=== PATIENT | male | born 1945 | race Two or more races ===

== ENCOUNTER 2022-12-25 17:17 | Emergency (ER) | payer MEDICARE ==
[~2022-12-25] VITALS: Ht 167.6 cm; Wt 68.5 kg
[2022-12-25] MEDS ORDERED: MORPHINE SULFATE 2 MG/1 ML DISP.SYRIN IV ONE (17:30)
[2022-12-25] MEDS ORDERED: ONDANSETRON 4 MG/2 ML VIAL IV ONE (17:30)
[2022-12-25] MEDS ORDERED: IV NORMAL SALINE 500 ML BAG IV ONE (17:30)
[2022-12-25] MEDS ORDERED: NEXIUM (17:31)
[2022-12-25] MEDS ORDERED: LIPITOR (17:31)
[2022-12-25] MEDS ORDERED: MORPHINE SULFATE 4 MG/1 ML DISP.SYRIN ONE (17:36)
[2022-12-25] MEDS ORDERED: ONDANSETRON 4 MG/2 ML VIAL ONE (17:36)
[2022-12-25 18:01] LABS: CALCIUM 8.5 mg/dL (8.5-10.1); CARBON DIOXIDE 25 mmol/L (21-32); CHLORIDE 105 mmol/L (98-107); CREATININE 1.2 mg/dL (0.6-1.3); GLUCOSE 126 mg/dL (74-106); POTASSIUM 3.9 mmol/L (3.5-5.1); SODIUM SERUM 141 mmol/L (136-145); UREA NITROGEN, BLOOD 22 mg/dL (7-18)
[2022-12-25 18:10] LABS: ALANINE AMINOTRANSFERASE 17 U/L (16-63); ALBUMIN 3.6 g/dL (3.4-5.0); ALKALINE PHOSPHATASE 77 U/L (50-136); ASPARTATE AMINOTRANSFERASE 19 U/L (15-37); BILIRUBIN,DIRECT 0.2 mg/dL (0.0-0.2); BILIRUBIN,TOTAL 0.7 mg/dL (0.2-1.0); TOTAL PROTEIN, SERUM 6.1 g/dL (6.4-8.2)
[2022-12-25] MEDS ORDERED: IV NORMAL SALINE 250 ML IV ONE (18:22)
[2022-12-25] MEDS ORDERED: IOHEXOL 300MG/ML 100 ML INFUS..BTL ONE (18:22)
[2022-12-25] MEDS ORDERED: SWABABLE VALVE TRANSFER SET EA MC ONE (18:22)
[2022-12-25 18:29] LABS: BASOPHILS % (AUTO) 0.7 % (0.0-2.0); EOSINOPHILS # (AUTO) 0.1 K/uL (0.0-0.7); EOSINOPHILS % (AUTO) 2.6 % (0.0-7.0); HEMATOCRIT 43.9 % (36.7-47.1); HEMOGLOBIN 14.8 g/dL (12.5-16.3); LYMPHOCYTES # (AUTO) 1.3 K/uL (0.8-4.8); MEAN CORPUSCULAR HEMOGLOBIN 31.6 uug (23.8-33.4); MEAN CORPUSCULAR HGB CONC 34 g/dL (32.5-36.3); MEAN CORPUSCULAR VOLUME 93.9 fL (73.0-96.2); MONOCYTES # (AUTO) 0.4 K/uL (0.1-1.30); MONOCYTES % (AUTO) 8.2 % (0.0-11.0); NEUTROPHILS # (AUTO) 3.6 K/uL (1.8-8.9); NEUTROPHILS % (AUTO) 65.5 % (38.5-71.5); PLATELET COUNT (AUTO) 141 K/uL (152-348); RED BLOOD CELL COUNT(AUTO) 4.68 MIL/uL (4.06-5.63); RED CELL DISTRIBUTION WIDTH 14.1 % (12.1-16.2); WHITE BLOOD COUNT (AUTO) 5.4 K/uL (3.6-10.2)
[2022-12-25 19:53] LABS: LIPASE 33 U/L (73-393)
[2022-12-25] MEDS ORDERED: TRAM50TA2 PO (20:02)
[2022-12-25] MEDS ORDERED: HYDROCODONE/APAP 10-325 MG TABLET ONE (20:10)
[2022-12-25] MEDS ORDERED: HYDROCODONE/APAP 10-325 MG TABLET PO ONE (20:15)
[2022-12-25 20:18] VITALS: BP 159/87; O2SAT 97
== END 2022-12-25 20:43 | disposition home or self-care (01) ==
LOC: ER 17:19
DX: S22.31XA Fracture of one rib, right side, initial encounter for closed fracture (principal); S22.20XA Unspecified fracture of sternum, initial encounter for closed fracture; S61.217A Laceration without foreign body of left little finger without damage to nail, initial encounter; M79.10 Myalgia, unspecified site; E78.5 Hyperlipidemia, unspecified; K21.9 Gastro-esophageal reflux disease without esophagitis; Z79.899 Other long term (current) drug therapy; V49.9XXA Car occupant (driver) (passenger) injured in unspecified traffic accident, initial encounter; Y93.89 Activity, other specified; Y92.410 Unspecified street and highway as the place of occurrence of the external cause; Y99.8 Other external cause status
CPT/HCPCS: 99285; 71260; 96374; 96375; 80076; 80048; 83690; 85025; 85730; 84484; 36415; 73130; 73590; 74177; 12001; 93005; J2405; Q9967; J2270; J7040 ×2; A4663

== ENCOUNTER 2023-02-28 08:26 | Inpatient (IN) | payer MEDICARE, BC ==
[~2023-02-28] VITALS: Ht 170.2 cm; Wt 68.0 kg
[~2023-02-28 08:26] MED LIST: LIPITOR; NEXIUM; TRAM50TA2 PO
[2023-02-28] MEDS ORDERED: FAMO40TA7 PO (09:30)
[2023-02-28] MEDS ORDERED: TICA60TA PO ×2 (09:30→18:38)
[2023-02-28] MEDS ORDERED: RASA1TAB4 PO (09:30)
[2023-02-28] MEDS ORDERED: GABA-532 (09:30)
[2023-02-28] MEDS ORDERED: ATOR10TA (09:30)
[2023-02-28] MEDS ORDERED: CARB1TAB21 PO (09:30)
[2023-02-28] MEDS ORDERED: ESCI5TAB16 PO (09:30)
[2023-02-28] MEDS ORDERED: FINA5TAB3 PO (09:30)
[2023-02-28] MEDS ORDERED: BUDE10.2 INH (09:30)
[2023-02-28 09:36] LABS: BASOPHILS # (AUTO) 0.1 K/UL (0.0-0.2); BASOPHILS % (AUTO) 1.4 % (0.0-2.0); EOSINOPHILS # (AUTO) 0.1 K/uL (0.0-0.7); HEMATOCRIT 44.8 % (36.7-47.1); HEMOGLOBIN 15.2 g/dL (12.5-16.3); LYMPHOCYTES # (AUTO) 0.4 K/uL (0.8-4.8); LYMPHOCYTES % (AUTO) 4.9 % (20.5-51.5); MEAN CORPUSCULAR HGB CONC 34 g/dL (32.5-36.3); MEAN CORPUSCULAR VOLUME 94.2 fL (73.0-96.2); MONOCYTES # (AUTO) 0.5 K/uL (0.1-1.30); MONOCYTES % (AUTO) 5.8 % (0.0-11.0); NEUTROPHILS # (AUTO) 7.2 K/uL (1.8-8.9); NEUTROPHILS % (AUTO) 86.9 % (38.5-71.5); PLATELET COUNT (AUTO) 144 K/uL (152-348); RED BLOOD CELL COUNT(AUTO) 4.75 MIL/uL (4.06-5.63); RED CELL DISTRIBUTION WIDTH 14.1 % (12.1-16.2); WHITE BLOOD COUNT (AUTO) 8.3 K/uL (3.6-10.2)
[2023-02-28 09:45] LABS: CALCIUM 8.5 mg/dL (8.5-10.1); CARBON DIOXIDE 25 mmol/L (21-32); CHLORIDE 108 mmol/L (98-107); CREATININE 1.1 mg/dL (0.6-1.3); GLUCOSE 132 mg/dL (74-106); POTASSIUM 4.1 mmol/L (3.5-5.1); SODIUM SERUM 142 mmol/L (136-145); UREA NITROGEN, BLOOD 21 mg/dL (7-18)
[2023-02-28] MEDS ORDERED: MORPHINE SULFATE 4 MG/1 ML DISP.SYRIN IV ONE (09:45)
[2023-02-28] MEDS ORDERED: ONDANSETRON 4 MG/2 ML VIAL IV ONE (09:45)
[2023-02-28] MEDS ORDERED: ONDANSETRON 4 MG/2 ML VIAL ONE (09:45)
[2023-02-28] MEDS ORDERED: MORPHINE SULFATE 4 MG/1 ML DISP.SYRIN ONE (09:45)
[2023-02-28 09:49] LABS: DIFFERENTIAL COMMENT 1
[2023-02-28 12:00] VITALS: BP 144/83; TEMP 97.6; O2SAT 97
[2023-02-28] MEDS ORDERED: ONDANSETRON 4 MG/2 ML VIAL IV PRN (12:30)
[2023-02-28] MEDS ORDERED: ACETAMINOPHEN 650 MG SUPP.RECT RC PRN (12:30)
[2023-02-28] MEDS ORDERED: FUROSEMIDE 20 MG/2 ML VIAL IV ONE (13:00)
[2023-02-28] MEDS: IV D5/ 0.9% NACL 1,000 ML IV PRN (13:52)
[2023-02-28 16:00] VITALS: BP 149/87; TEMP 98.3; O2SAT 97
[2023-02-28] MEDS: MORPHINE SULFATE 2 MG/1 ML DISP.SYRIN IV PRN ×2 (16:20→19:54)
[2023-02-28 18:01] VITALS: BP_SYST 145; BP_SYST 152; BP_DIAS 102; BP_DIAS 70; TEMP 98.3; O2SAT 98
[2023-02-28 20:16] VITALS: BP 134/82; TEMP 99.3; O2SAT 95
[2023-02-28] MEDS: LORAZEPAM 2 MG/1 ML VIAL IV PRN (21:14)
[2023-03-01] VITALS (8 sets, daily range): BP systolic 121–164; BP diastolic 61–100; TEMP 97.3–98.9; O2SAT 92–98
[2023-03-01] MEDS: CEFAZOLIN 1 G in IV DEXTROSE 5% 50 ML IV SCH ×2 (00:23→08:23)
[2023-03-01] MEDS: MORPHINE SULFATE 2 MG/1 ML DISP.SYRIN IV PRN ×4 (00:24→23:48)
[2023-03-01] MEDS: LORAZEPAM 2 MG/1 ML VIAL IV PRN ×2 (05:26→19:15)
[2023-03-01 07:19] LABS: BASOPHILS # (AUTO) 0.1 K/UL (0.0-0.2); BASOPHILS % (AUTO) 0.7 % (0.0-2.0); EOSINOPHILS # (AUTO) 0.1 K/uL (0.0-0.7); EOSINOPHILS % (AUTO) 1.7 % (0.0-7.0); HEMOGLOBIN 14.4 g/dL (12.5-16.3); LYMPHOCYTES # (AUTO) 0.6 K/uL (0.8-4.8); LYMPHOCYTES % (AUTO) 7.4 % (20.5-51.5); MEAN CORPUSCULAR HEMOGLOBIN 32.1 uug (23.8-33.4); MEAN CORPUSCULAR HGB CONC 34 g/dL (32.5-36.3); MEAN CORPUSCULAR VOLUME 93.3 fL (73.0-96.2); MONOCYTES # (AUTO) 0.5 K/uL (0.1-1.30); MONOCYTES % (AUTO) 6.5 % (0.0-11.0); NEUTROPHILS # (AUTO) 6.5 K/uL (1.8-8.9); NEUTROPHILS % (AUTO) 83.7 % (38.5-71.5); PLATELET COUNT (AUTO) 135 K/uL (152-348); RED CELL DISTRIBUTION WIDTH 14.1 % (12.1-16.2); WHITE BLOOD COUNT (AUTO) 7.8 K/uL (3.6-10.2)
[2023-03-01 07:26] LABS: DIFFERENTIAL COMMENT 1
[2023-03-01 07:45] LABS: THYROID STIMULATING HORMONE 1.044 mIU/mL (0.358-3.740)
[2023-03-01 08:03] LABS: ALANINE AMINOTRANSFERASE 18 U/L (16-63); ALBUMIN 3.2 g/dL (3.4-5.0); ALKALINE PHOSPHATASE 77 U/L (50-136); ASPARTATE AMINOTRANSFERASE 16 U/L (15-37); BILIRUBIN,TOTAL 1.1 mg/dL (0.2-1.0); CALCIUM 7.8 mg/dL (8.5-10.1); CARBON DIOXIDE 24 mmol/L (21-32); CHLORIDE 108 mmol/L (98-107); CHOLESTEROL 104 mg/dL (<200); GLUCOSE 126 mg/dL (74-106); HDL CHOLESTEROL 57 mg/dL (40-60); MAGNESIUM 1.9 mg/dL (1.8-2.4); PHOSPHOROUS 2.9 mg/dL (2.5-4.9); POTASSIUM 3.3 mmol/L (3.5-5.1); SODIUM SERUM 142 mmol/L (136-145); TOTAL PROTEIN, SERUM 6.1 g/dL (6.4-8.2); TRIGLYCERIDES 47 MG/DL (30-150); UREA NITROGEN, BLOOD 19 mg/dL (7-18)
[2023-03-01] MEDS: PANTOPRAZOLE SODIUM 40 MG VIAL IV SCH (09:02)
[2023-03-01] MEDS: ENALAPRILAT DIHYDRATE 1.25 MG/1 ML VIAL IV PRN (09:03)
[2023-03-01] MEDS: IV D5/ 0.9% NACL 1,000 ML IV PRN (10:25)
[2023-03-01] MEDS: POTASSIUM CHLORIDE 10 MEQ, LIDOCAINE-MPF 1% 1 ML in IV DEXTROSE 5% 100 ML IV SCH ×2 (10:25→11:32)
[2023-03-01] MEDS ORDERED: MORPHINE SULFATE 4 MG/1 ML DISP.SYRIN IV PRN (11:30)
[2023-03-01 12:22] LABS: *BLOOD, URINE NEGATIVE (NEGATIVE); *CLARITY,URINE CLEAR (CLEAR); *COLOR,URINE YELLOW (YELLOW); *KETONES,URINE TRACE (NEGATIVE); *PROTEIN,URINE 2+ (NEGATIVE); LEUKOCYTE ESTERASE ,URINE NEGATIVE (NEGATIVE); NITRITE, URINE NEGATIVE (NEGATIVE); PH,URINE 6.5 (5.0-8.0); UGLUCOSE NEGATIVE (NEGATIVE)
[2023-03-01] MEDS ORDERED: MORPHINE SULFATE 2 MG/1 ML DISP.SYRIN IV PRN ×2 (12:30→18:00)
[2023-03-01 12:52] LABS: *BILIRUBIN,URIN 1+ (NEGATIVE)
[2023-03-01 13:41] LABS: BACTERIA,URINE FEW /HPF (NONE SEEN); RBC,URINE 0-3 /HPF (0-3); WBC,URINE 0-3 /HPF (0-3)
[2023-03-01 13:42] LABS: SQUAMOUS EPITHELIAL CELL,UR FEW /HPF (NONE SEEN)
[2023-03-01] MEDS ORDERED: VANCOMYCIN 1000 MG VIAL ONE (14:48)
[2023-03-01] MEDS ORDERED: MIDAZOLAM HCL 2 MG/2 ML VIAL ONE ×2 (15:43→18:01)
[2023-03-01] MEDS ORDERED: FENTANYL CITRATE 250 MCG/5 ML AMPUL ONE (15:44)
[2023-03-01] MEDS ORDERED: FENTANYL CITRATE 100 MCG/2 ML AMPUL ONE (15:44)
[2023-03-01] MEDS ORDERED: FAMOTIDINE. 20 MG/2 ML VIAL IV ONE (15:45)
[2023-03-01] MEDS ORDERED: ROCURONIUM BROMIDE 50 MG/5 ML VIAL ONE (15:45)
[2023-03-01] MEDS ORDERED: HYDROMORPHONE 1 MG/1 ML DISP.SYRIN ONE (17:45)
[2023-03-01] MEDS ORDERED: HYDROCODONE/APAP 10-325 MG TABLET PO PRN (18:00)
[2023-03-01] MEDS ORDERED: POTASSIUM CHLORIDE 20 MEQ in IV 1/2NS 1000 ML 1,000 ML IV PRN (18:00)
[2023-03-01] MEDS ORDERED: IV D5W-0.45% NS +20 KCL 1,000 ML IV ONE (18:15)
[2023-03-02] MEDS: CEFAZOLIN 1 G in IV DEXTROSE 5% 50 ML IV SCH ×2 (00:43→08:19)
[2023-03-02] MEDS: MORPHINE SULFATE 2 MG/1 ML DISP.SYRIN IV PRN ×2 (03:44→08:19)
[2023-03-02 04:00] VITALS: BP 121/67; TEMP 97.6; O2SAT 98
[2023-03-02] MEDS: LORAZEPAM 2 MG/1 ML VIAL IV PRN (06:26)
[2023-03-02 07:21] LABS: BASOPHILS % (AUTO) 0.6 % (0.0-2.0); EOSINOPHILS # (AUTO) 0.1 K/uL (0.0-0.7); EOSINOPHILS % (AUTO) 0.8 % (0.0-7.0); HEMATOCRIT 39.6 % (36.7-47.1); HEMOGLOBIN 13.3 g/dL (12.5-16.3); LYMPHOCYTES # (AUTO) 0.6 K/uL (0.8-4.8); LYMPHOCYTES % (AUTO) 8.7 % (20.5-51.5); MEAN CORPUSCULAR HEMOGLOBIN 31.8 uug (23.8-33.4); MEAN CORPUSCULAR HGB CONC 34 g/dL (32.5-36.3); MEAN CORPUSCULAR VOLUME 94.7 fL (73.0-96.2); MONOCYTES # (AUTO) 0.8 K/uL (0.1-1.30); MONOCYTES % (AUTO) 11.1 % (0.0-11.0); NEUTROPHILS # (AUTO) 5.5 K/uL (1.8-8.9); NEUTROPHILS % (AUTO) 78.8 % (38.5-71.5); PLATELET COUNT (AUTO) 131 K/uL (152-348); RED BLOOD CELL COUNT(AUTO) 4.18 MIL/uL (4.06-5.63); RED CELL DISTRIBUTION WIDTH 13.7 % (12.1-16.2); WHITE BLOOD COUNT (AUTO) 6.9 K/uL (3.6-10.2)
[2023-03-02 07:30] LABS: DIFFERENTIAL COMMENT 1
[2023-03-02 08:00] LABS: CALCIUM 8.1 mg/dL (8.5-10.1); CARBON DIOXIDE 24 mmol/L (21-32); CHLORIDE 111 mmol/L (98-107); CREATININE 1.1 mg/dL (0.6-1.3); GLUCOSE 135 mg/dL (74-106); MAGNESIUM 1.9 mg/dL (1.8-2.4); PHOSPHOROUS 2.7 mg/dL (2.5-4.9); POTASSIUM 4.1 mmol/L (3.5-5.1); SODIUM SERUM 143 mmol/L (136-145); UREA NITROGEN, BLOOD 18 mg/dL (7-18)
[2023-03-02] MEDS: PANTOPRAZOLE SODIUM 40 MG VIAL IV SCH (08:18)
[2023-03-02] MEDS: POTASSIUM CHLORIDE 20 MEQ in IV D5 1/2 NS 1000 ML 1,000 ML IV PRN (09:42)
[2023-03-02 14:20] VITALS: BP 161/83; TEMP 98; O2SAT 96
[2023-03-02] MEDS: ENALAPRILAT DIHYDRATE 1.25 MG/1 ML VIAL IV PRN ×2 (14:31→23:06)
[2023-03-02 14:45] VITALS: BP 155/81
[2023-03-02] MEDS ORDERED: ENALAPRILAT DIHYDRATE 1.25 MG/1 ML VIAL IV PRN (15:00)
[2023-03-02] MEDS: KETOROLAC TROMETHAMINE 15 MG INJ IVP PRN ×2 (15:20→23:37)
[2023-03-02] MEDS ORDERED: PROPOFOL 200 MG/20 ML BOTTLE ONE (16:00)
[2023-03-02] MEDS ORDERED: ONDANSETRON 4 MG/2 ML VIAL ONE (16:00)
[2023-03-02] MEDS ORDERED: GLYCOPYRROLATE 0.2 MG/ML VIAL ONE ×2 (16:00)
[2023-03-02] MEDS ORDERED: CEFAZOLIN 1 G VIAL ONE ×2 (16:00)
[2023-03-02] MEDS ORDERED: METOCLOPRAMIDE HCL 10 MG/2 ML VIAL ONE (16:00)
[2023-03-02] MEDS ORDERED: LIDOCAINE-MPF 2% 5 ML VIAL ONE (16:00)
[2023-03-02] MEDS ORDERED: NEOSTIGMINE METHYLSULFATE 10 MG/10 ML VIAL ONE (16:00)
[2023-03-02 18:08] VITALS: O2SAT 96
[2023-03-02] MEDS: HYDROCODONE/APAP 10-325 MG TABLET PO PRN (19:54)
[2023-03-02 20:00] VITALS: BP 162/79; TEMP 98.2; O2SAT 94
[2023-03-02] MEDS ORDERED: LORAZEPAM 2 MG/1 ML VIAL IV ONE (21:45)
[2023-03-03] VITALS: BP 151/82; TEMP 98.1; O2SAT 96
[2023-03-03] MEDS ORDERED: LORAZEPAM 2 MG/1 ML VIAL IV ONE (01:30)
[2023-03-03] MEDS: POTASSIUM CHLORIDE 20 MEQ in IV D5 1/2 NS 1000 ML 1,000 ML IV PRN (04:07)
[2023-03-03] MEDS: HYDROCODONE/APAP 10-325 MG TABLET PO PRN ×2 (06:05→11:52)
[2023-03-03 07:31] LABS: BASOPHILS # (AUTO) 0.1 K/UL (0.0-0.2); BASOPHILS % (AUTO) 0.8 % (0.0-2.0); EOSINOPHILS # (AUTO) 0.1 K/uL (0.0-0.7); EOSINOPHILS % (AUTO) 0.7 % (0.0-7.0); HEMATOCRIT 38.3 % (36.7-47.1); LYMPHOCYTES # (AUTO) 0.6 K/uL (0.8-4.8); LYMPHOCYTES % (AUTO) 7.8 % (20.5-51.5); MEAN CORPUSCULAR HEMOGLOBIN 32.1 uug (23.8-33.4); MEAN CORPUSCULAR HGB CONC 34 g/dL (32.5-36.3); MEAN CORPUSCULAR VOLUME 94.3 fL (73.0-96.2); MONOCYTES # (AUTO) 0.9 K/uL (0.1-1.30); MONOCYTES % (AUTO) 11.7 % (0.0-11.0); PLATELET COUNT (AUTO) 141 K/uL (152-348); RED BLOOD CELL COUNT(AUTO) 4.06 MIL/uL (4.06-5.63); RED CELL DISTRIBUTION WIDTH 13.8 % (12.1-16.2); WHITE BLOOD COUNT (AUTO) 7.6 K/uL (3.6-10.2)
[2023-03-03 07:37] LABS: DIFFERENTIAL COMMENT 1
[2023-03-03 07:46] LABS: CALCIUM 8.8 mg/dL (8.5-10.1); CARBON DIOXIDE 23 mmol/L (21-32); CHLORIDE 110 mmol/L (98-107); GLUCOSE 104 mg/dL (74-106); MAGNESIUM 2.1 mg/dL (1.8-2.4); PHOSPHOROUS 2.7 mg/dL (2.5-4.9); POTASSIUM 3.9 mmol/L (3.5-5.1); SODIUM SERUM 146 mmol/L (136-145); UREA NITROGEN, BLOOD 31 mg/dL (7-18)
[2023-03-03] MEDS: PANTOPRAZOLE SODIUM 40 MG VIAL IV SCH (08:41)
[2023-03-03] MEDS ORDERED: ALBUTEROL SULFATE 2.5 MG/3 ML NEBU NEB PRN (09:00)
[2023-03-03 12:22] VITALS: BP 165/95; TEMP 98.9; O2SAT 96
[2023-03-03] MEDS: ENALAPRILAT DIHYDRATE 1.25 MG/1 ML VIAL IV PRN (12:27)
[2023-03-03] MEDS: ENSURE ENLIVE (VAN) 240 ML LIQUID PO SCH ×2 (13:00→16:46)
[2023-03-03] MEDS ORDERED: QUETIAPINE FUMARATE 25 MG TABLET PO PRN (13:15)
[2023-03-03] MEDS ORDERED: MIRALAX 17 GM POWD.PACK PO PRN (15:45)
[2023-03-03] MEDS: GABAPENTIN 100 MG CAPSULE PO SCH (16:46)
[2023-03-03] MEDS: CARBIDOPA/LEVODOPA 25-100MG TABLET PO SCH (16:46)
[2023-03-03] MEDS: ACETAMINOPHEN ES 500 MG TABLET PO PRN (18:17)
[2023-03-03 20:00] VITALS: BP 156/94; TEMP 98.9; O2SAT 98
[2023-03-03] MEDS ORDERED: CLONIDINE-TTS 1 PATCH TD SCH (20:15)
[2023-03-03] MEDS: DOCUSATE SODIUM 100 MG CAPSULE PO SCH (20:33)
[2023-03-03] MEDS ORDERED: CLONIDINE-TTS 1 PATCH TD ONE (21:24)
[2023-03-04] VITALS: BP 142/97; TEMP 98; O2SAT 96
[2023-03-04] MEDS: ACETAMINOPHEN ES 500 MG TABLET PO PRN ×3 (00:34→20:27)
[2023-03-04] MEDS: GABAPENTIN 100 MG CAPSULE PO SCH ×4 (00:34→23:56)
[2023-03-04 04:00] VITALS: BP 137/90; TEMP 98.1; O2SAT 95
[2023-03-04] MEDS: PANTOPRAZOLE SODIUM 40 MG TABLET.DR PO SCH (06:29)
[2023-03-04 08:15] VITALS: BP 129/72; TEMP 98.9; O2SAT 95
[2023-03-04] MEDS: CARBIDOPA/LEVODOPA 25-100MG TABLET PO SCH ×3 (08:47→17:11)
[2023-03-04] MEDS: ENSURE ENLIVE (VAN) 240 ML LIQUID PO SCH ×3 (08:48→17:11)
[2023-03-04] MEDS ORDERED: FUROSEMIDE 20 MG/2 ML VIAL IV ONE (09:45)
[2023-03-04] MEDS ORDERED: DOXA4TAB3 PO (10:08)
[2023-03-04] MEDS: RASAGILINE MESYLATE 1 MG PO SCH (10:23)
[2023-03-04 11:18] VITALS: BP 120/68; TEMP 98.2; O2SAT 97
[2023-03-04 16:00] VITALS: BP 150/76; TEMP 97.5; O2SAT 96
[2023-03-04 16:13] LABS: BASOPHILS % (AUTO) 0.8 % (0.0-2.0); EOSINOPHILS # (AUTO) 0.3 K/uL (0.0-0.7); EOSINOPHILS % (AUTO) 5.2 % (0.0-7.0); HEMATOCRIT 39.2 % (36.7-47.1); HEMOGLOBIN 13.4 g/dL (12.5-16.3); LYMPHOCYTES # (AUTO) 0.9 K/uL (0.8-4.8); LYMPHOCYTES % (AUTO) 14.7 % (20.5-51.5); MEAN CORPUSCULAR HEMOGLOBIN 31.7 uug (23.8-33.4); MEAN CORPUSCULAR HGB CONC 34 g/dL (32.5-36.3); MEAN CORPUSCULAR VOLUME 93.1 fL (73.0-96.2); MONOCYTES # (AUTO) 0.5 K/uL (0.1-1.30); MONOCYTES % (AUTO) 8.1 % (0.0-11.0); NEUTROPHILS # (AUTO) 4.4 K/uL (1.8-8.9); NEUTROPHILS % (AUTO) 71.2 % (38.5-71.5); PLATELET COUNT (AUTO) 164 K/uL (152-348); RED BLOOD CELL COUNT(AUTO) 4.21 MIL/uL (4.06-5.63); RED CELL DISTRIBUTION WIDTH 13.8 % (12.1-16.2); WHITE BLOOD COUNT (AUTO) 6.2 K/uL (3.6-10.2)
[2023-03-04 16:36] LABS: ALANINE AMINOTRANSFERASE 33 U/L (16-63); ALBUMIN 2.7 g/dL (3.4-5.0); ALKALINE PHOSPHATASE 175 U/L (50-136); ASPARTATE AMINOTRANSFERASE 181 U/L (15-37); BILIRUBIN,TOTAL 2.7 mg/dL (0.2-1.0); CALCIUM 8.5 mg/dL (8.5-10.1); CARBON DIOXIDE 26 mmol/L (21-32); CHLORIDE 106 mmol/L (98-107); CREATININE 0.9 mg/dL (0.6-1.3); GLUCOSE 127 mg/dL (74-106); MAGNESIUM 2.3 mg/dL (1.8-2.4); NT-PRO BNP 767 pg/mL (0-125); PHOSPHOROUS 3.4 mg/dL (2.5-4.9); POTASSIUM 3.4 mmol/L (3.5-5.1); SODIUM SERUM 142 mmol/L (136-145); TOTAL PROTEIN, SERUM 5.6 g/dL (6.4-8.2); UREA NITROGEN, BLOOD 31 mg/dL (7-18)
[2023-03-04 20:00] VITALS: BP 138/81; TEMP 98.3; O2SAT 96
[2023-03-04] MEDS: DOCUSATE SODIUM 100 MG CAPSULE PO SCH (20:16)
[2023-03-05] MEDS: ACETAMINOPHEN ES 500 MG TABLET PO PRN ×2 (04:10→21:02)
[2023-03-05 05:21] VITALS: BP 135/66; TEMP 97.5; O2SAT 97
[2023-03-05] MEDS: PANTOPRAZOLE SODIUM 40 MG TABLET.DR PO SCH (06:20)
[2023-03-05 06:40] LABS: BASOPHILS % (AUTO) 0.8 % (0.0-2.0); EOSINOPHILS # (AUTO) 0.2 K/uL (0.0-0.7); EOSINOPHILS % (AUTO) 3.6 % (0.0-7.0); HEMATOCRIT 37.9 % (36.7-47.1); HEMOGLOBIN 13.2 g/dL (12.5-16.3); LYMPHOCYTES # (AUTO) 0.9 K/uL (0.8-4.8); LYMPHOCYTES % (AUTO) 16.3 % (20.5-51.5); MEAN CORPUSCULAR HEMOGLOBIN 32.1 uug (23.8-33.4); MEAN CORPUSCULAR HGB CONC 35 g/dL (32.5-36.3); MEAN CORPUSCULAR VOLUME 92.1 fL (73.0-96.2); MONOCYTES # (AUTO) 0.5 K/uL (0.1-1.30); NEUTROPHILS % (AUTO) 70.3 % (38.5-71.5); PLATELET COUNT (AUTO) 177 K/uL (152-348); RED BLOOD CELL COUNT(AUTO) 4.11 MIL/uL (4.06-5.63); RED CELL DISTRIBUTION WIDTH 13.8 % (12.1-16.2); WHITE BLOOD COUNT (AUTO) 5.7 K/uL (3.6-10.2)
[2023-03-05 06:52] LABS: DIFFERENTIAL COMMENT 1
[2023-03-05 06:56] LABS: ALANINE AMINOTRANSFERASE 71 U/L (16-63); ALBUMIN 2.6 g/dL (3.4-5.0); ALKALINE PHOSPHATASE 161 U/L (50-136); ASPARTATE AMINOTRANSFERASE 91 U/L (15-37); BILIRUBIN,TOTAL 1.5 mg/dL (0.2-1.0); CALCIUM 8.7 mg/dL (8.5-10.1); CARBON DIOXIDE 26 mmol/L (21-32); CHLORIDE 107 mmol/L (98-107); CREATININE 0.9 mg/dL (0.6-1.3); GLUCOSE 96 mg/dL (74-106); MAGNESIUM 2.3 mg/dL (1.8-2.4); PHOSPHOROUS 3.9 mg/dL (2.5-4.9); POTASSIUM 3.5 mmol/L (3.5-5.1); SODIUM SERUM 144 mmol/L (136-145); TOTAL PROTEIN, SERUM 5.6 g/dL (6.4-8.2); UREA NITROGEN, BLOOD 35 mg/dL (7-18)
[2023-03-05] MEDS: GABAPENTIN 100 MG CAPSULE PO SCH ×2 (08:31→16:42)
[2023-03-05] MEDS: RASAGILINE MESYLATE 1 MG PO SCH (08:31)
[2023-03-05] MEDS: CARBIDOPA/LEVODOPA 25-100MG TABLET PO SCH ×3 (08:32→16:42)
[2023-03-05] MEDS: ENSURE ENLIVE (VAN) 240 ML LIQUID PO SCH ×3 (08:33→16:43)
[2023-03-05] MEDS ORDERED: MULTIVITAMINS,THERAPEUTIC TABLET PO SCH (10:30)
[2023-03-05] MEDS ORDERED: POTASSIUM CHLORIDE 20 MEQ TAB.PRT.SR PO ONE (10:30)
[2023-03-05 11:11] VITALS: BP 123/69; TEMP 98.7; O2SAT 98
[2023-03-05] MEDS: GUAIFENESIN/DEXTROMETHORPHAN 5 ML UDC PO PRN ×2 (12:47→21:02)
[2023-03-05 15:17] VITALS: BP 130/70; TEMP 98.6; O2SAT 98
[2023-03-05] MEDS ORDERED: DOCU-141 PO (19:43)
[2023-03-05] MEDS ORDERED: POLY17PO4 PO (19:43)
[2023-03-05] MEDS ORDERED: CARB1TAB21 PO (19:43)
[2023-03-05] MEDS ORDERED: ALBU2.5V7 NEB (19:43)
[2023-03-05] MEDS ORDERED: DOXA4TAB3 PO (19:43)
[2023-03-05] MEDS ORDERED: ACET-73 PO (19:43)
[2023-03-05] MEDS ORDERED: GABA-532 PO (19:43)
[2023-03-05] MEDS ORDERED: QUET25TA36 PO (19:43)
[2023-03-05] MEDS ORDERED: MULT-24 PO (19:43)
[2023-03-05] MEDS ORDERED: Lactose-Free Food PO (19:43)
[2023-03-05] MEDS ORDERED: Patient May Use Own Med- Md Ok PO (19:43)
[2023-03-05] MEDS ORDERED: GUAI5SYR PO (19:43)
[2023-03-05 20:18] VITALS: BP 122/69; TEMP 98.4; O2SAT 96
[2023-03-05 20:47] VITALS: O2SAT 96
[2023-03-05 21:01] VITALS: O2SAT 96; O2SAT 99
[2023-03-05] MEDS: DOCUSATE SODIUM 100 MG CAPSULE PO SCH (21:02)
[2023-03-06] MEDS ORDERED: ATOR10TA PO (12:44)
[2023-03-06] MEDS ORDERED: ATOR20TA PO (12:44)
== END 2023-03-05 21:55 | DRG 522 ==
LOC: ER 08:26 → MEDSURG3 11:26 → TELE3 03-02 15:05 → MEDSURG3 03-04 09:40
PROVIDERS: ADMIT Internal Medicine; ATTEND Internal Medicine
PROC: 0SRR0JA Replacement of Right Hip Joint, Femoral Surface with Synthetic Substitute, Uncemented, Open Approach (ICD-10-PCS; principal; 2023-03-01)
DX: S72.011A Unspecified intracapsular fracture of right femur, initial encounter for closed fracture (principal); D68.59 Other primary thrombophilia; F02.811 Dementia in other diseases classified elsewhere, unspecified severity, with agitation; F05 Delirium due to known physiological condition; G20.A1 Parkinson's disease without dyskinesia, without mention of fluctuations; K21.9 Gastro-esophageal reflux disease without esophagitis; E78.5 Hyperlipidemia, unspecified; N40.0 Benign prostatic hyperplasia without lower urinary tract symptoms; M19.90 Unspecified osteoarthritis, unspecified site; E11.9 Type 2 diabetes mellitus without complications; Z74.09 Other reduced mobility; R74.01 Elevation of levels of liver transaminase levels; Z86.73 Personal history of transient ischemic attack (TIA), and cerebral infarction without residual deficits; Z87.891 Personal history of nicotine dependence; Z90.49 Acquired absence of other specified parts of digestive tract; Z98.49 Cataract extraction status, unspecified eye; Z79.51 Long term (current) use of inhaled steroids; Z79.02 Long term (current) use of antithrombotics/antiplatelets; W01.0XXA Fall on same level from slipping, tripping and stumbling without subsequent striking against object, initial encounter; Y92.89 Other specified places as the place of occurrence of the external cause; R09.89 Other specified symptoms and signs involving the circulatory and respiratory systems; R94.31 Abnormal electrocardiogram [ECG] [EKG]
CPT/HCPCS: 36415; 70450; 71045; 73501; 73502; 73551; 73560; 74018; 83690; 83735; 84100; 84443; 84484; 85025; 85730; 93005; 93307; A6213; A9150; C9113; G0378; J0690; J1170; J1885; J1940; J2001; J2060; J2250; J2270; J2405; J2765; J3010; J3370; J3480; J3490; J7042

== ENCOUNTER 2023-03-05 22:09 | Inpatient (IN) | payer MEDICARE, BC ==
[~2023-03-05] VITALS: Ht 170.2 cm; Wt 72.6 kg
[2023-03-05 22:00] VITALS: BP 122/69; TEMP 98.6; O2SAT 96
[~2023-03-05 22:09] MED LIST changes: +ACET-73 PO; +ALBU2.5V7 NEB; +ATOR10TA; +BUDE10.2 INH; +CARB1TAB21 PO; +DOCU-141 PO; +DOXA4TAB3 PO; +ESCI5TAB16 PO; +FAMO40TA7 PO; +FINA5TAB3 PO; +GABA-532; +GABA-532 PO; +GUAI5SYR PO; -LIPITOR; +Lactose-Free Food PO; +MULT-24 PO; -NEXIUM; +POLY17PO4 PO; +Patient May Use Own Med- Md Ok PO; +QUET25TA36 PO; +RASA1TAB4 PO; +TICA60TA PO
[2023-03-06] VITALS (8 sets, daily range): BP systolic 104–138; BP diastolic 63–66; TEMP 97.8–98.8; O2SAT 96–99
[2023-03-06] MEDS ORDERED: MIRALAX 17 GM POWD.PACK PO PRN (01:45)
[2023-03-06] MEDS ORDERED: GABAPENTIN 100 MG CAPSULE PO SCH (02:00)
[2023-03-06] MEDS: QUETIAPINE FUMARATE 25 MG TABLET PO PRN (02:28)
[2023-03-06] MEDS: FAMOTIDINE 20 MG TABLET PO SCH (08:25)
[2023-03-06] MEDS: MULTIVITAMINS,THERAPEUTIC TABLET PO SCH (08:25)
[2023-03-06] MEDS: CARBIDOPA/LEVODOPA 25-100MG TABLET PO SCH ×3 (08:25→16:59)
[2023-03-06] MEDS: FINASTERIDE 5 MG TABLET PO SCH (08:25)
[2023-03-06] MEDS: ESCITALOPRAM OXALATE 10 MG TABLET PO SCH (08:26)
[2023-03-06] MEDS: ENSURE ENLIVE (VAN) 240 ML LIQUID PO SCH ×3 (08:27→17:00)
[2023-03-06] MEDS ORDERED: TICAGRELOR 60 MG TABLET PO SCH ×2 (09:00)
[2023-03-06] MEDS ORDERED: Medication Not On Formulary EA ([Patient May Use Own Med- Md Ok] 1 EA) PO SCH (09:00)
[2023-03-06] MEDS ORDERED: RASAGILINE MESYLATE PO SCH (09:00)
[2023-03-06] MEDS ORDERED: Medication Not On Formulary EA ([Lactose-Free Food] 240 ML) PO SCH (09:00)
[2023-03-06] MEDS ORDERED: ATOR20TA PO (12:44)
[2023-03-06] MEDS ORDERED: ATOR10TA PO (12:44)
[2023-03-06] MEDS: GABAPENTIN 100 MG CAPSULE PO SCH ×2 (13:09→20:45)
[2023-03-06] MEDS: GUAIFENESIN/DEXTROMETHORPHAN 5 ML UDC PO PRN ×2 (13:11→20:42)
[2023-03-06] MEDS: ALBUTEROL SULFATE 2.5 MG/3 ML NEBU NEB PRN ×2 (14:41→20:41)
[2023-03-06] MEDS: RASAGILINE MESYLATE 1 MG PO SCH (17:40)
[2023-03-06] MEDS: DOCUSATE SODIUM 100 MG CAPSULE PO SCH (20:46)
[2023-03-06] MEDS: DOXAZOSIN 2 MG TABLET PO SCH (20:57)
[2023-03-06] MEDS: TRAMADOL HCL 50 MG TABLET PO PRN (21:01)
[2023-03-07] VITALS (8 sets, daily range): BP systolic 105–121; BP diastolic 55–70; TEMP 94.8–98.6; O2SAT 95–99
[2023-03-07] MEDS: QUETIAPINE FUMARATE 25 MG TABLET PO PRN (01:05)
[2023-03-07] MEDS: GABAPENTIN 100 MG CAPSULE PO SCH ×3 (06:15→21:43)
[2023-03-07] MEDS: ALBUTEROL SULFATE 2.5 MG/3 ML NEBU NEB PRN ×2 (07:58→20:39)
[2023-03-07] MEDS: CARBIDOPA/LEVODOPA 25-100MG TABLET PO SCH ×3 (09:30→16:54)
[2023-03-07] MEDS: RASAGILINE MESYLATE 1 MG PO SCH (09:30)
[2023-03-07] MEDS: FAMOTIDINE 20 MG TABLET PO SCH (09:35)
[2023-03-07] MEDS: FINASTERIDE 5 MG TABLET PO SCH (09:36)
[2023-03-07] MEDS: MULTIVITAMINS,THERAPEUTIC TABLET PO SCH (09:36)
[2023-03-07] MEDS: ENSURE ENLIVE (VAN) 240 ML LIQUID PO SCH ×3 (09:37→16:54)
[2023-03-07] MEDS: ESCITALOPRAM OXALATE 10 MG TABLET PO SCH (09:37)
[2023-03-07] MEDS: CYANOCOBALAMIN 1000 MCG/ML VIAL IM SCH (14:24)
[2023-03-07 15:38] LABS: CALCIUM 8.3 mg/dL (8.5-10.1); CREATININE 0.8 mg/dL (0.6-1.3); POTASSIUM 3.6 mmol/L (3.5-5.1)
[2023-03-07] MEDS: DOCUSATE SODIUM 100 MG CAPSULE PO SCH (21:42)
[2023-03-07] MEDS: DOXAZOSIN 2 MG TABLET PO SCH (21:43)
[2023-03-08 03:36] LABS: *BILIRUBIN,URIN NEGATIVE (NEGATIVE); *BLOOD, URINE NEGATIVE (NEGATIVE); *CLARITY,URINE CLEAR (CLEAR); *COLOR,URINE YELLOW (YELLOW); *KETONES,URINE TRACE (NEGATIVE); *PROTEIN,URINE TRACE (NEGATIVE); LEUKOCYTE ESTERASE ,URINE NEGATIVE (NEGATIVE); NITRITE, URINE NEGATIVE (NEGATIVE); UGLUCOSE NEGATIVE (NEGATIVE)
[2023-03-08 04:00] VITALS: BP 115/69; TEMP 97.4; O2SAT 94
[2023-03-08] MEDS: GABAPENTIN 100 MG CAPSULE PO SCH ×3 (06:04→21:38)
[2023-03-08 07:44] VITALS: BP 144/76; TEMP 97.9; O2SAT 95
[2023-03-08] MEDS: RASAGILINE MESYLATE 1 MG PO SCH (08:55)
[2023-03-08] MEDS: ASPIRIN 81 MG TAB.CHEW PO SCH (08:56)
[2023-03-08] MEDS: FAMOTIDINE 20 MG TABLET PO SCH (08:56)
[2023-03-08] MEDS: CARBIDOPA/LEVODOPA 25-100MG TABLET PO SCH ×3 (08:58→16:46)
[2023-03-08] MEDS: ESCITALOPRAM OXALATE 10 MG TABLET PO SCH (08:59)
[2023-03-08] MEDS: MULTIVITAMINS,THERAPEUTIC TABLET PO SCH (08:59)
[2023-03-08] MEDS: FINASTERIDE 5 MG TABLET PO SCH (09:00)
[2023-03-08] MEDS: ENSURE ENLIVE (VAN) 240 ML LIQUID PO SCH (09:00)
[2023-03-08] MEDS: CYANOCOBALAMIN 1000 MCG/ML VIAL IM SCH (09:01)
[2023-03-08] MEDS: TICAGRELOR 60 MG TABLET PO SCH ×2 (09:53→16:46)
[2023-03-08 16:06] VITALS: BP 161/59; TEMP 98.3; O2SAT 95
[2023-03-08] MEDS ORDERED: IV DEXTROSE 5%-0.2% NS 1,000 ML IV PRN (17:30)
[2023-03-08] MEDS: IV D5 1/2 NS 1000 ML 1,000 ML IV PRN (17:42)
[2023-03-08 20:39] VITALS: BP 129/64; TEMP 98.2; O2SAT 96
[2023-03-08 20:51] VITALS: O2SAT 97
[2023-03-08] MEDS: ALBUTEROL SULFATE 2.5 MG/3 ML NEBU NEB PRN (20:51)
[2023-03-08 21:01] VITALS: O2SAT 100
[2023-03-08] MEDS: DOCUSATE SODIUM 100 MG CAPSULE PO SCH (21:39)
[2023-03-08] MEDS: DOXAZOSIN 2 MG TABLET PO SCH (21:39)
[2023-03-09] MEDS: ACETAMINOPHEN ES 500 MG TABLET PO PRN ×2 (00:27→20:43)
[2023-03-09 04:42] VITALS: BP 146/69; TEMP 98.2; O2SAT 98
[2023-03-09] MEDS: GABAPENTIN 100 MG CAPSULE PO SCH ×3 (06:08→21:21)
[2023-03-09] MEDS: IV D5 1/2 NS 1000 ML 1,000 ML IV PRN (06:09)
[2023-03-09 07:54] VITALS: BP 128/69; TEMP 98.6; O2SAT 96
[2023-03-09] MEDS: ASPIRIN 81 MG TAB.CHEW PO SCH (08:26)
[2023-03-09] MEDS: MULTIVITAMINS,THERAPEUTIC TABLET PO SCH (08:26)
[2023-03-09] MEDS: FAMOTIDINE 20 MG TABLET PO SCH (08:26)
[2023-03-09] MEDS: CARBIDOPA/LEVODOPA 25-100MG TABLET PO SCH ×3 (08:27→17:32)
[2023-03-09] MEDS: ESCITALOPRAM OXALATE 10 MG TABLET PO SCH (08:27)
[2023-03-09] MEDS: CYANOCOBALAMIN 1000 MCG/ML VIAL IM SCH (08:27)
[2023-03-09] MEDS: FINASTERIDE 5 MG TABLET PO SCH (08:27)
[2023-03-09] MEDS: ENSURE ENLIVE (VAN) 240 ML LIQUID PO SCH (08:28)
[2023-03-09] MEDS: RASAGILINE MESYLATE 1 MG PO SCH (08:28)
[2023-03-09] MEDS: TICAGRELOR 60 MG TABLET PO SCH ×2 (08:28→17:32)
[2023-03-09 15:04] VITALS: BP 117/68; TEMP 98; O2SAT 68
[2023-03-09 20:14] LABS: BASOPHILS # (AUTO) 0.1 K/UL (0.0-0.2); BASOPHILS % (AUTO) 0.9 % (0.0-2.0); EOSINOPHILS # (AUTO) 0.2 K/uL (0.0-0.7); EOSINOPHILS % (AUTO) 3.3 % (0.0-7.0); HEMATOCRIT 34.4 % (36.7-47.1); HEMOGLOBIN 11.4 g/dL (12.5-16.3); LYMPHOCYTES # (AUTO) 1.3 K/uL (0.8-4.8); LYMPHOCYTES % (AUTO) 18.5 % (20.5-51.5); MEAN CORPUSCULAR HEMOGLOBIN 31.3 uug (23.8-33.4); MEAN CORPUSCULAR HGB CONC 33 g/dL (32.5-36.3); MEAN CORPUSCULAR VOLUME 94.5 fL (73.0-96.2); MONOCYTES # (AUTO) 0.6 K/uL (0.1-1.30); MONOCYTES % (AUTO) 8.5 % (0.0-11.0); NEUTROPHILS # (AUTO) 4.6 K/uL (1.8-8.9); NEUTROPHILS % (AUTO) 68.8 % (38.5-71.5); PLATELET COUNT (AUTO) 250 K/uL (152-348); RED BLOOD CELL COUNT(AUTO) 3.64 MIL/uL (4.06-5.63); RED CELL DISTRIBUTION WIDTH 13.8 % (12.1-16.2); WHITE BLOOD COUNT (AUTO) 6.8 K/uL (3.6-10.2)
[2023-03-09 20:17] LABS: DIFFERENTIAL COMMENT 1
[2023-03-09 20:20] VITALS: O2SAT 98
[2023-03-09] MEDS: ALBUTEROL SULFATE 2.5 MG/3 ML NEBU NEB PRN (20:20)
[2023-03-09 20:24] LABS: CALCIUM 8.1 mg/dL (8.5-10.1); CREATININE 0.7 mg/dL (0.6-1.3); POTASSIUM 3.8 mmol/L (3.5-5.1)
[2023-03-09 20:30] VITALS: O2SAT 100
[2023-03-09 20:38] VITALS: BP 126/69; TEMP 97.6; O2SAT 96
[2023-03-09] MEDS: DOCUSATE SODIUM 100 MG CAPSULE PO SCH (20:42)
[2023-03-09] MEDS: DOXAZOSIN 2 MG TABLET PO SCH (20:43)
[2023-03-09] MEDS: GUAIFENESIN/DEXTROMETHORPHAN 5 ML UDC PO PRN (22:35)
[2023-03-09] MEDS ORDERED: HALOPERIDOL LACTATE 5 MG/1 ML VIAL IM PRN (23:30)
[2023-03-10 04:00] VITALS: BP 156/77; TEMP 98; O2SAT 99
[2023-03-10] MEDS: GABAPENTIN 100 MG CAPSULE PO SCH ×3 (05:51→22:08)
[2023-03-10] MEDS: FAMOTIDINE 20 MG TABLET PO SCH (08:32)
[2023-03-10] MEDS: CYANOCOBALAMIN 1000 MCG/ML VIAL IM SCH (08:33)
[2023-03-10] MEDS: MULTIVITAMINS,THERAPEUTIC TABLET PO SCH (08:33)
[2023-03-10] MEDS: ESCITALOPRAM OXALATE 10 MG TABLET PO SCH (08:33)
[2023-03-10] MEDS: CARBIDOPA/LEVODOPA 25-100MG TABLET PO SCH ×3 (08:33→16:20)
[2023-03-10] MEDS: FINASTERIDE 5 MG TABLET PO SCH (08:33)
[2023-03-10] MEDS: ENSURE ENLIVE (VAN) 240 ML LIQUID PO SCH (08:34)
[2023-03-10] MEDS: TICAGRELOR 60 MG TABLET PO SCH ×2 (08:35→16:20)
[2023-03-10] MEDS: RASAGILINE MESYLATE 1 MG PO SCH (08:35)
[2023-03-10] MEDS: ACETAMINOPHEN ES 500 MG TABLET PO PRN ×2 (09:03→15:15)
[2023-03-10 11:20] VITALS: BP 90/57; TEMP 97.8; O2SAT 98
[2023-03-10] MEDS: GUAIFENESIN/DEXTROMETHORPHAN 5 ML UDC PO PRN ×2 (12:10→23:23)
[2023-03-10] MEDS: TRAMADOL HCL 50 MG TABLET PO PRN (19:43)
[2023-03-10 20:19] VITALS: BP 135/69; TEMP 98.1; O2SAT 99
[2023-03-10] MEDS: DOCUSATE SODIUM 100 MG CAPSULE PO SCH (21:18)
[2023-03-10] MEDS: DOXAZOSIN 2 MG TABLET PO SCH (21:18)
[2023-03-10 22:29] VITALS: O2SAT 99
[2023-03-10] MEDS: IV D5 1/2 NS 1000 ML 1,000 ML IV PRN (23:24)
[2023-03-11 04:00] VITALS: BP 126/72; TEMP 98.4; O2SAT 98
[2023-03-11] MEDS: GABAPENTIN 100 MG CAPSULE PO SCH ×3 (05:20→21:33)
[2023-03-11 08:30] LABS: BASOPHILS # (AUTO) 0.1 K/UL (0.0-0.2); BASOPHILS % (AUTO) 0.8 % (0.0-2.0); EOSINOPHILS # (AUTO) 0.1 K/uL (0.0-0.7); EOSINOPHILS % (AUTO) 0.9 % (0.0-7.0); HEMATOCRIT 34.9 % (36.7-47.1); HEMOGLOBIN 11.6 g/dL (12.5-16.3); LYMPHOCYTES # (AUTO) 0.8 K/uL (0.8-4.8); LYMPHOCYTES % (AUTO) 11.7 % (20.5-51.5); MEAN CORPUSCULAR HEMOGLOBIN 31.3 uug (23.8-33.4); MEAN CORPUSCULAR HGB CONC 33 g/dL (32.5-36.3); MEAN CORPUSCULAR VOLUME 94.1 fL (73.0-96.2); MONOCYTES # (AUTO) 0.7 K/uL (0.1-1.30); MONOCYTES % (AUTO) 9.7 % (0.0-11.0); NEUTROPHILS # (AUTO) 5.5 K/uL (1.8-8.9); NEUTROPHILS % (AUTO) 76.9 % (38.5-71.5); PLATELET COUNT (AUTO) 311 K/uL (152-348); RED BLOOD CELL COUNT(AUTO) 3.71 MIL/uL (4.06-5.63); WHITE BLOOD COUNT (AUTO) 7.2 K/uL (3.6-10.2)
[2023-03-11 08:40] LABS: DIFFERENTIAL COMMENT 1
[2023-03-11 08:43] LABS: CALCIUM 8.4 mg/dL (8.5-10.1); CARBON DIOXIDE 26 mmol/L (21-32); CHLORIDE 107 mmol/L (98-107); CREATININE 0.8 mg/dL (0.6-1.3); GLUCOSE 112 mg/dL (74-106); POTASSIUM 5.1 mmol/L (3.5-5.1); SODIUM SERUM 141 mmol/L (136-145); UREA NITROGEN, BLOOD 19 mg/dL (7-18)
[2023-03-11] MEDS: MULTIVITAMINS,THERAPEUTIC TABLET PO SCH (08:51)
[2023-03-11] MEDS: FAMOTIDINE 20 MG TABLET PO SCH (08:51)
[2023-03-11] MEDS: ESCITALOPRAM OXALATE 10 MG TABLET PO SCH (08:52)
[2023-03-11] MEDS: FINASTERIDE 5 MG TABLET PO SCH (08:52)
[2023-03-11] MEDS: CARBIDOPA/LEVODOPA 25-100MG TABLET PO SCH ×3 (08:52→17:18)
[2023-03-11] MEDS: RASAGILINE MESYLATE 1 MG PO SCH (08:53)
[2023-03-11] MEDS: TICAGRELOR 60 MG TABLET PO SCH ×2 (08:53→17:19)
[2023-03-11] MEDS: CYANOCOBALAMIN 1000 MCG/ML VIAL IM SCH (08:57)
[2023-03-11] MEDS: ENSURE ENLIVE (VAN) 240 ML LIQUID PO SCH (09:11)
[2023-03-11] MEDS: ACETAMINOPHEN ES 500 MG TABLET PO PRN (13:42)
[2023-03-11 19:00] VITALS: BP 97/73; TEMP 98.9; O2SAT 98
[2023-03-11] MEDS: TRAMADOL HCL 50 MG TABLET PO PRN (19:54)
[2023-03-11] MEDS: DOCUSATE SODIUM 100 MG CAPSULE PO SCH (21:33)
[2023-03-11] MEDS: DOXAZOSIN 2 MG TABLET PO SCH (21:33)
[2023-03-12] MEDS: IV D5 1/2 NS 1000 ML 1,000 ML IV PRN ×2 (00:19→15:42)
[2023-03-12] MEDS: GABAPENTIN 100 MG CAPSULE PO SCH ×4 (06:03→22:09)
[2023-03-12 07:41] VITALS: BP 122/71; TEMP 98.7; O2SAT 98
[2023-03-12 08:00] VITALS: O2SAT 98
[2023-03-12] MEDS: CYANOCOBALAMIN 1000 MCG/ML VIAL IM SCH (08:35)
[2023-03-12] MEDS: FAMOTIDINE 20 MG TABLET PO SCH (08:35)
[2023-03-12] MEDS: ESCITALOPRAM OXALATE 10 MG TABLET PO SCH (08:35)
[2023-03-12] MEDS: FINASTERIDE 5 MG TABLET PO SCH (08:35)
[2023-03-12] MEDS: MULTIVITAMINS,THERAPEUTIC TABLET PO SCH (08:36)
[2023-03-12] MEDS: RASAGILINE MESYLATE 1 MG PO SCH (08:36)
[2023-03-12] MEDS: CARBIDOPA/LEVODOPA 25-100MG TABLET PO SCH ×3 (08:36→16:11)
[2023-03-12] MEDS: TICAGRELOR 60 MG TABLET PO SCH ×2 (08:36→16:11)
[2023-03-12] MEDS: ENSURE ENLIVE (VAN) 240 ML LIQUID PO SCH (08:37)
[2023-03-12] MEDS: ACETAMINOPHEN ES 500 MG TABLET PO PRN ×2 (10:25→22:09)
[2023-03-12] MEDS: DOCUSATE SODIUM 100 MG CAPSULE PO SCH (21:56)
[2023-03-12] MEDS: DOXAZOSIN 2 MG TABLET PO SCH (22:09)
[2023-03-12] MEDS: QUETIAPINE FUMARATE 25 MG TABLET PO PRN (22:27)
[2023-03-12 23:27] VITALS: BP 100/60; TEMP 98.4
[2023-03-13] MEDS: GABAPENTIN 100 MG CAPSULE PO SCH ×3 (06:00→21:58)
[2023-03-13] MEDS: ACETAMINOPHEN 325 MG TABLET PO SCH ×3 (06:00→21:58)
[2023-03-13 06:19] VITALS: BP 102/79; TEMP 98.4
[2023-03-13] MEDS: IV D5 1/2 NS 1000 ML 1,000 ML IV PRN (07:11)
[2023-03-13 08:00] VITALS: BP 100/55; TEMP 97.3; O2SAT 97
[2023-03-13] MEDS: ACETAMINOPHEN ES 500 MG TABLET PO PRN (08:54)
[2023-03-13] MEDS: MULTIVITAMINS,THERAPEUTIC TABLET PO SCH (08:54)
[2023-03-13] MEDS: CARBIDOPA/LEVODOPA 25-100MG TABLET PO SCH ×3 (08:54→17:18)
[2023-03-13] MEDS: FINASTERIDE 5 MG TABLET PO SCH (08:54)
[2023-03-13] MEDS: CYANOCOBALAMIN 1000 MCG/ML VIAL IM SCH (08:55)
[2023-03-13] MEDS: ESCITALOPRAM OXALATE 10 MG TABLET PO SCH (08:55)
[2023-03-13] MEDS: FAMOTIDINE 20 MG TABLET PO SCH (08:55)
[2023-03-13] MEDS: TICAGRELOR 60 MG TABLET PO SCH ×2 (08:58→17:18)
[2023-03-13] MEDS: RASAGILINE MESYLATE 1 MG PO SCH (08:59)
[2023-03-13] MEDS: ENSURE ENLIVE (VAN) 240 ML LIQUID PO SCH (10:10)
[2023-03-13 15:38] VITALS: BP 106/60; TEMP 98.2; O2SAT 98
[2023-03-13 15:40] VITALS: BP 108/60; TEMP 98.2; O2SAT 98
[2023-03-13] MEDS: TRAMADOL HCL 50 MG TABLET PO PRN (17:19)
[2023-03-13] MEDS: REMEDY ESSENTIAL ZINC PASTE 113 GM TOP PRN (17:19)
[2023-03-13] MEDS: DOCUSATE SODIUM 100 MG CAPSULE PO SCH (21:57)
[2023-03-13] MEDS: DOXAZOSIN 2 MG TABLET PO SCH (21:57)
[2023-03-14] MEDS: IV D5 1/2 NS 1000 ML 1,000 ML IV PRN (00:07)
[2023-03-14] MEDS: QUETIAPINE FUMARATE 25 MG TABLET PO PRN (00:23)
[2023-03-14] MEDS: GABAPENTIN 100 MG CAPSULE PO SCH ×3 (06:56→22:25)
[2023-03-14] MEDS: ACETAMINOPHEN 325 MG TABLET PO SCH ×3 (06:58→22:25)
[2023-03-14 08:00] VITALS: BP 108/73; TEMP 98.2; O2SAT 98
[2023-03-14] MEDS: MULTIVITAMINS,THERAPEUTIC TABLET PO SCH (09:27)
[2023-03-14] MEDS: FINASTERIDE 5 MG TABLET PO SCH (09:27)
[2023-03-14] MEDS: ESCITALOPRAM OXALATE 10 MG TABLET PO SCH (09:28)
[2023-03-14] MEDS: CYANOCOBALAMIN 1000 MCG/ML VIAL IM SCH (09:29)
[2023-03-14] MEDS: CARBIDOPA/LEVODOPA 25-100MG TABLET PO SCH ×3 (09:29→17:15)
[2023-03-14] MEDS: FAMOTIDINE 20 MG TABLET PO SCH (09:29)
[2023-03-14] MEDS: TICAGRELOR 60 MG TABLET PO SCH ×2 (09:31→17:15)
[2023-03-14] MEDS: RASAGILINE MESYLATE 1 MG PO SCH (09:44)
[2023-03-14] MEDS: ENSURE ENLIVE (VAN) 240 ML LIQUID PO SCH (09:45)
[2023-03-14] MEDS: TRAMADOL HCL 50 MG TABLET PO PRN ×3 (10:45→22:34)
[2023-03-14 15:00] VITALS: BP 126/84; TEMP 98; O2SAT 96
[2023-03-14] MEDS ORDERED: QUETIAPINE FUMARATE 25 MG TABLET PO SCH (21:00)
[2023-03-14] MEDS: DOXAZOSIN 2 MG TABLET PO SCH (22:33)
[2023-03-14] MEDS: DOCUSATE SODIUM 100 MG CAPSULE PO SCH (22:34)
[2023-03-15] MEDS: IV D5 1/2 NS 1000 ML 1,000 ML IV PRN (04:45)
[2023-03-15 05:14] VITALS: BP 128/68; TEMP 97.8
[2023-03-15] MEDS: ACETAMINOPHEN 325 MG TABLET PO SCH ×3 (07:25→21:42)
[2023-03-15] MEDS: GABAPENTIN 100 MG CAPSULE PO SCH ×3 (07:25→21:42)
[2023-03-15] MEDS: FAMOTIDINE 20 MG TABLET PO SCH (09:35)
[2023-03-15] MEDS: MULTIVITAMINS,THERAPEUTIC TABLET PO SCH (09:36)
[2023-03-15] MEDS: CARBIDOPA/LEVODOPA 25-100MG TABLET PO SCH ×3 (09:37→17:38)
[2023-03-15] MEDS: FINASTERIDE 5 MG TABLET PO SCH (09:37)
[2023-03-15] MEDS: RASAGILINE MESYLATE 1 MG PO SCH (09:37)
[2023-03-15] MEDS: TICAGRELOR 60 MG TABLET PO SCH ×2 (09:37→17:38)
[2023-03-15] MEDS: ENSURE ENLIVE (VAN) 240 ML LIQUID PO SCH (09:38)
[2023-03-15] MEDS: ESCITALOPRAM OXALATE 10 MG TABLET PO SCH (09:42)
[2023-03-15 15:31] VITALS: BP 106/66; TEMP 98.2; O2SAT 98
[2023-03-15 20:45] VITALS: BP 142/63; TEMP 98.3; O2SAT 95
[2023-03-15 20:56] VITALS: O2SAT 98
[2023-03-15] MEDS: DOCUSATE SODIUM 100 MG CAPSULE PO SCH (21:42)
[2023-03-15] MEDS: DOXAZOSIN 2 MG TABLET PO SCH (21:43)
[2023-03-15] MEDS: TRAMADOL HCL 50 MG TABLET PO PRN (21:44)
[2023-03-16] MEDS: IV D5 1/2 NS 1000 ML 1,000 ML IV PRN (01:17)
[2023-03-16] MEDS: ACETAMINOPHEN 325 MG TABLET PO SCH ×3 (06:15→22:04)
[2023-03-16] MEDS: GABAPENTIN 100 MG CAPSULE PO SCH ×3 (06:19→22:04)
[2023-03-16 08:00] VITALS: BP 123/61; TEMP 97.8
[2023-03-16] MEDS: FAMOTIDINE 20 MG TABLET PO SCH (08:49)
[2023-03-16] MEDS: CARBIDOPA/LEVODOPA 25-100MG TABLET PO SCH ×3 (08:50→17:32)
[2023-03-16] MEDS: FINASTERIDE 5 MG TABLET PO SCH (08:50)
[2023-03-16] MEDS: ESCITALOPRAM OXALATE 10 MG TABLET PO SCH (08:50)
[2023-03-16] MEDS: MULTIVITAMINS,THERAPEUTIC TABLET PO SCH (08:50)
[2023-03-16] MEDS: TICAGRELOR 60 MG TABLET PO SCH ×2 (08:51→17:32)
[2023-03-16] MEDS: ENSURE ENLIVE (VAN) 240 ML LIQUID PO SCH (08:51)
[2023-03-16] MEDS: RASAGILINE MESYLATE 1 MG PO SCH (08:52)
[2023-03-16] MEDS: ACETAMINOPHEN ES 500 MG TABLET PO PRN (12:34)
[2023-03-16 20:00] VITALS: BP 138/66; TEMP 98.6; O2SAT 98
[2023-03-16] MEDS: DOCUSATE SODIUM 100 MG CAPSULE PO SCH (20:23)
[2023-03-16] MEDS: DOXAZOSIN 2 MG TABLET PO SCH (20:23)
[2023-03-16] MEDS: TRAMADOL HCL 50 MG TABLET PO PRN (20:26)
[2023-03-16] MEDS ORDERED: MAG HYDROX/AL HYDROX/SIMETH 30 ML LIQUID UDC PO PRN (21:15)
[2023-03-16] MEDS: MELATONIN 3 MG TABLET PO SCH (21:19)
[2023-03-17] MEDS: ACETAMINOPHEN 325 MG TABLET PO SCH ×3 (06:08→21:08)
[2023-03-17] MEDS: GABAPENTIN 100 MG CAPSULE PO SCH ×3 (06:09→21:07)
[2023-03-17 07:47] VITALS: BP 136/70; TEMP 97.7; O2SAT 96
[2023-03-17] MEDS: FAMOTIDINE 20 MG TABLET PO SCH (08:49)
[2023-03-17] MEDS: MULTIVITAMINS,THERAPEUTIC TABLET PO SCH (08:49)
[2023-03-17] MEDS: CARBIDOPA/LEVODOPA 25-100MG TABLET PO SCH ×3 (08:50→17:22)
[2023-03-17] MEDS: FINASTERIDE 5 MG TABLET PO SCH (08:50)
[2023-03-17] MEDS: ESCITALOPRAM OXALATE 10 MG TABLET PO SCH (08:51)
[2023-03-17] MEDS: ENSURE ENLIVE (VAN) 240 ML LIQUID PO SCH (08:52)
[2023-03-17] MEDS: RASAGILINE MESYLATE 1 MG PO SCH (08:52)
[2023-03-17] MEDS: TICAGRELOR 60 MG TABLET PO SCH ×2 (08:52→17:22)
[2023-03-17 16:20] VITALS: BP 133/72; TEMP 97.8; O2SAT 100
[2023-03-17] MEDS: DOCUSATE SODIUM 100 MG CAPSULE PO SCH (20:47)
[2023-03-17] MEDS: MELATONIN 3 MG TABLET PO SCH (20:47)
[2023-03-17] MEDS: DOXAZOSIN 2 MG TABLET PO SCH (20:55)
[2023-03-17] MEDS: TRAMADOL HCL 50 MG TABLET PO PRN (21:02)
[2023-03-17 21:17] VITALS: BP 141/77; TEMP 97.9; O2SAT 97
[2023-03-17] MEDS: REMEDY ESSENTIAL ZINC PASTE 113 GM TOP PRN (23:37)
[2023-03-18 05:00] VITALS: BP 141/78; TEMP 97.9; O2SAT 97
[2023-03-18] MEDS: GABAPENTIN 100 MG CAPSULE PO SCH ×3 (06:11→20:40)
[2023-03-18] MEDS: ACETAMINOPHEN ES 500 MG TABLET PO PRN (06:11)
[2023-03-18 08:00] VITALS: BP 132/70; TEMP 97.9; O2SAT 97
[2023-03-18] MEDS: ESCITALOPRAM OXALATE 10 MG TABLET PO SCH (08:51)
[2023-03-18] MEDS: FINASTERIDE 5 MG TABLET PO SCH (08:51)
[2023-03-18] MEDS: FAMOTIDINE 20 MG TABLET PO SCH (08:52)
[2023-03-18] MEDS: RASAGILINE MESYLATE 1 MG PO SCH (08:52)
[2023-03-18] MEDS: TICAGRELOR 60 MG TABLET PO SCH ×2 (08:52→17:01)
[2023-03-18] MEDS: ENSURE ENLIVE (VAN) 240 ML LIQUID PO SCH (08:52)
[2023-03-18] MEDS: CARBIDOPA/LEVODOPA 25-100MG TABLET PO SCH ×3 (08:52→17:01)
[2023-03-18] MEDS: MULTIVITAMINS,THERAPEUTIC TABLET PO SCH (08:53)
[2023-03-18] MEDS: TRAMADOL HCL 50 MG TABLET PO PRN ×2 (13:44→23:39)
[2023-03-18 16:00] VITALS: BP 125/64; TEMP 97.9; O2SAT 97
[2023-03-18] MEDS: MELATONIN 3 MG TABLET PO SCH (20:39)
[2023-03-18] MEDS: DOXAZOSIN 2 MG TABLET PO SCH ×2 (20:39→20:43)
[2023-03-18] MEDS: DOCUSATE SODIUM 100 MG CAPSULE PO SCH (20:39)
[2023-03-18 20:42] VITALS: BP 122/68; TEMP 98; O2SAT 97
[2023-03-19 03:59] VITALS: BP 118/60; TEMP 98.1; O2SAT 97
[2023-03-19] MEDS: GABAPENTIN 100 MG CAPSULE PO SCH ×3 (05:22→21:27)
[2023-03-19] MEDS: MULTIVITAMINS,THERAPEUTIC TABLET PO SCH (09:45)
[2023-03-19] MEDS: ESCITALOPRAM OXALATE 10 MG TABLET PO SCH (09:45)
[2023-03-19] MEDS: FAMOTIDINE 20 MG TABLET PO SCH (09:45)
[2023-03-19] MEDS: RASAGILINE MESYLATE 1 MG PO SCH (09:46)
[2023-03-19] MEDS: TICAGRELOR 60 MG TABLET PO SCH ×2 (09:46→17:34)
[2023-03-19] MEDS: FINASTERIDE 5 MG TABLET PO SCH (09:46)
[2023-03-19] MEDS: ENSURE ENLIVE (VAN) 240 ML LIQUID PO SCH (09:46)
[2023-03-19] MEDS: CARBIDOPA/LEVODOPA 25-100MG TABLET PO SCH ×3 (09:46→17:34)
[2023-03-19 15:32] VITALS: BP 129/67; TEMP 98; O2SAT 97
[2023-03-19 20:57] VITALS: BP 127/66; TEMP 98.2; O2SAT 97
[2023-03-19] MEDS: MELATONIN 3 MG TABLET PO SCH (20:57)
[2023-03-19] MEDS: DOCUSATE SODIUM 100 MG CAPSULE PO SCH (20:57)
[2023-03-19] MEDS: DOXAZOSIN 2 MG TABLET PO SCH (20:57)
[2023-03-19] MEDS: TRAMADOL HCL 50 MG TABLET PO PRN (21:27)
[2023-03-20 05:00] VITALS: BP 133/71; TEMP 97.7; O2SAT 98
[2023-03-20] MEDS: GABAPENTIN 100 MG CAPSULE PO SCH ×2 (05:19→13:51)
[2023-03-20 06:00] LABS: BASOPHILS % (AUTO) 0.7 % (0.0-2.0); EOSINOPHILS # (AUTO) 0.1 K/uL (0.0-0.7); EOSINOPHILS % (AUTO) 1.1 % (0.0-7.0); HEMATOCRIT 35.1 % (36.7-47.1); HEMOGLOBIN 11.7 g/dL (12.5-16.3); LYMPHOCYTES # (AUTO) 0.9 K/uL (0.8-4.8); LYMPHOCYTES % (AUTO) 15.6 % (20.5-51.5); MEAN CORPUSCULAR HEMOGLOBIN 31.3 uug (23.8-33.4); MEAN CORPUSCULAR HGB CONC 33 g/dL (32.5-36.3); MEAN CORPUSCULAR VOLUME 93.6 fL (73.0-96.2); MONOCYTES # (AUTO) 0.5 K/uL (0.1-1.30); NEUTROPHILS # (AUTO) 4.5 K/uL (1.8-8.9); NEUTROPHILS % (AUTO) 74.6 % (38.5-71.5); PLATELET COUNT (AUTO) 462 K/uL (152-348); RED BLOOD CELL COUNT(AUTO) 3.75 MIL/uL (4.06-5.63); RED CELL DISTRIBUTION WIDTH 14.5 % (12.1-16.2)
[2023-03-20 06:40] LABS: DIFFERENTIAL COMMENT 1
[2023-03-20 06:54] LABS: ALANINE AMINOTRANSFERASE 22 U/L (16-63); ALBUMIN 2.3 g/dL (3.4-5.0); ALKALINE PHOSPHATASE 126 U/L (50-136); ASPARTATE AMINOTRANSFERASE 15 U/L (15-37); BILIRUBIN,TOTAL 0.5 mg/dL (0.2-1.0); CALCIUM 8.1 mg/dL (8.5-10.1); CARBON DIOXIDE 28 mmol/L (21-32); CHLORIDE 104 mmol/L (98-107); CREATININE 0.8 mg/dL (0.6-1.3); GLUCOSE 94 mg/dL (74-106); MAGNESIUM 2.2 mg/dL (1.8-2.4); PHOSPHOROUS 3.5 mg/dL (2.5-4.9); POTASSIUM 3.9 mmol/L (3.5-5.1); SODIUM SERUM 138 mmol/L (136-145); TOTAL PROTEIN, SERUM 5.7 g/dL (6.4-8.2); UREA NITROGEN, BLOOD 13 mg/dL (7-18)
[2023-03-20 08:00] VITALS: BP 144/73; TEMP 98.4; O2SAT 95
[2023-03-20] MEDS: ENSURE ENLIVE (VAN) 240 ML LIQUID PO SCH (09:00)
[2023-03-20] MEDS: ESCITALOPRAM OXALATE 10 MG TABLET PO SCH (09:54)
[2023-03-20] MEDS: TICAGRELOR 60 MG TABLET PO SCH (09:54)
[2023-03-20] MEDS: FINASTERIDE 5 MG TABLET PO SCH (09:54)
[2023-03-20] MEDS: FAMOTIDINE 20 MG TABLET PO SCH (09:54)
[2023-03-20] MEDS: MULTIVITAMINS,THERAPEUTIC TABLET PO SCH (09:54)
[2023-03-20] MEDS: RASAGILINE MESYLATE 1 MG PO SCH (09:54)
[2023-03-20] MEDS: CARBIDOPA/LEVODOPA 25-100MG TABLET PO SCH ×2 (09:55→13:51)
[2023-03-20] MEDS: TRAMADOL HCL 50 MG TABLET PO PRN (14:13)
== END 2023-03-20 15:00 | DRG 559 ==
PROVIDERS: ADMIT Physical Medicine & Rehabilitation Pain Medicine; ATTEND Physical Medicine & Rehabilitation Pain Medicine
PROC: 05HB33Z Insertion of Infusion Device into Right Basilic Vein, Percutaneous Approach (ICD-10-PCS; principal; 2023-03-11)
DX: Z47.1 Aftercare following joint replacement surgery (principal); G93.41 Metabolic encephalopathy; D68.59 Other primary thrombophilia; F02.83 Dementia in other diseases classified elsewhere, unspecified severity, with mood disturbance; F05 Delirium due to known physiological condition; L76.34 Postprocedural seroma of skin and subcutaneous tissue following other procedure; L76.32 Postprocedural hematoma of skin and subcutaneous tissue following other procedure; Z96.641 Presence of right artificial hip joint; Z86.73 Personal history of transient ischemic attack (TIA), and cerebral infarction without residual deficits; M19.90 Unspecified osteoarthritis, unspecified site; Z91.81 History of falling; D64.9 Anemia, unspecified; E78.5 Hyperlipidemia, unspecified; E88.09 Other disorders of plasma-protein metabolism, not elsewhere classified; G20.A1 Parkinson's disease without dyskinesia, without mention of fluctuations; F32.A Depression, unspecified; I25.10 Atherosclerotic heart disease of native coronary artery without angina pectoris; K21.9 Gastro-esophageal reflux disease without esophagitis; N40.0 Benign prostatic hyperplasia without lower urinary tract symptoms; Z87.891 Personal history of nicotine dependence; Z90.49 Acquired absence of other specified parts of digestive tract; R73.9 Hyperglycemia, unspecified
CPT/HCPCS: 36415; 70450; 71045; 73501; 73502; 73700; 83735; 83921; 84100; 85025; 93005; 94640; 97535-GO-CO; A4663; A9150; J1630; J3420; J7040

== ENCOUNTER 2023-03-21 20:10 | Emergency (ER) | payer MEDICARE, BC ==
[~2023-03-21] VITALS: Ht 165.1 cm; Wt 62.1 kg
[~2023-03-21 20:10] MED LIST changes: -ATOR10TA; +ATOR10TA PO; +ATOR20TA PO; -GABA-532
[2023-03-21 21:40] LABS: BASOPHILS # (AUTO) 0.1 K/UL (0.0-0.2); BASOPHILS % (AUTO) 0.9 % (0.0-2.0); EOSINOPHILS # (AUTO) 0.1 K/uL (0.0-0.7); EOSINOPHILS % (AUTO) 1.2 % (0.0-7.0); HEMATOCRIT 35.8 % (36.7-47.1); HEMOGLOBIN 11.9 g/dL (12.5-16.3); LYMPHOCYTES # (AUTO) 1.1 K/uL (0.8-4.8); LYMPHOCYTES % (AUTO) 18.7 % (20.5-51.5); MEAN CORPUSCULAR HGB CONC 33 g/dL (32.5-36.3); MEAN CORPUSCULAR VOLUME 93.5 fL (73.0-96.2); MONOCYTES # (AUTO) 0.6 K/uL (0.1-1.30); MONOCYTES % (AUTO) 9.9 % (0.0-11.0); NEUTROPHILS % (AUTO) 69.3 % (38.5-71.5); PLATELET COUNT (AUTO) 407 K/uL (152-348); RED BLOOD CELL COUNT(AUTO) 3.83 MIL/uL (4.06-5.63); RED CELL DISTRIBUTION WIDTH 14.4 % (12.1-16.2); WHITE BLOOD COUNT (AUTO) 5.7 K/uL (3.6-10.2)
[2023-03-21 22:06] LABS: CALCIUM 8.8 mg/dL (8.5-10.1); CARBON DIOXIDE 28 mmol/L (21-32); CHLORIDE 102 mmol/L (98-107); CREATININE 0.8 mg/dL (0.6-1.3); GLUCOSE 111 mg/dL (74-106); POTASSIUM 4.1 mmol/L (3.5-5.1); SODIUM SERUM 136 mmol/L (136-145); UREA NITROGEN, BLOOD 18 mg/dL (7-18)
[2023-03-21 22:21] LABS: ALANINE AMINOTRANSFERASE 10 U/L (16-63); ALBUMIN 2.5 g/dL (3.4-5.0); ALKALINE PHOSPHATASE 162 U/L (50-136); ASPARTATE AMINOTRANSFERASE 15 U/L (15-37); BILIRUBIN,TOTAL 0.4 mg/dL (0.2-1.0); NT-PRO BNP 98 pg/mL (0-125); TOTAL PROTEIN, SERUM 6.3 g/dL (6.4-8.2)
[2023-03-22 00:50] LABS: *BILIRUBIN,URIN NEGATIVE (NEGATIVE); *BLOOD, URINE 2+ (NEGATIVE); *CLARITY,URINE CLEAR (CLEAR); *COLOR,URINE YELLOW (YELLOW); *KETONES,URINE NEGATIVE (NEGATIVE); *PROTEIN,URINE TRACE (NEGATIVE); LEUKOCYTE ESTERASE ,URINE NEGATIVE (NEGATIVE); NITRITE, URINE NEGATIVE (NEGATIVE); PH,URINE 5.5 (5.0-8.0); UGLUCOSE NEGATIVE (NEGATIVE)
[2023-03-22 01:17] LABS: BACTERIA,URINE NONE SEEN /HPF (NONE SEEN); SQUAMOUS EPITHELIAL CELL,UR NONE SEEN /HPF (NONE SEEN); WBC,URINE 0-3 /HPF (0-3)
[2023-03-22] MEDS ORDERED: KETOROLAC TROMETHAMINE 15 MG INJ IVP ONE (01:45)
[2023-03-22] MEDS ORDERED: KETOROLAC TROMETHAMINE 15 MG INJ IM ONE (02:00)
[2023-03-22] MEDS ORDERED: KETOROLAC TROMETHAMINE 15 MG INJ ONE (02:02)
[2023-03-22 04:16] VITALS: BP 112/59; TEMP 98.2; O2SAT 100
== END 2023-03-22 04:15 ==
LOC: ER 20:12
DX: S72.091A Other fracture of head and neck of right femur, initial encounter for closed fracture (principal); R51.9 Headache, unspecified; E78.00 Pure hypercholesterolemia, unspecified; K21.9 Gastro-esophageal reflux disease without esophagitis; Z79.899 Other long term (current) drug therapy; Z60.2 Problems related to living alone; X58.XXXA Exposure to other specified factors, initial encounter; Y93.89 Activity, other specified; Y92.89 Other specified places as the place of occurrence of the external cause; Y99.8 Other external cause status
CPT/HCPCS: 99285; 70450; 71045; 80053; 83880; 85025; 87040; 84484; 36415; 74176; 83605; 81001; 96372; J1885; A4606; A4663; C1758